=== PATIENT | male | born 1955 | race Asian ===

== ENCOUNTER 2020-06-07 19:58 | Emergency (ER) | payer OTHER ==
[~2020-06-07] VITALS: Ht 170.2 cm; Wt 76.2 kg
[2020-06-07 20:40] VITALS: TEMP 98.9
[2020-06-07 21:26] LABS: PLATELET COUNT 215 K/uL (142-355)
[2020-06-07 23:05] VITALS: BP 128/64
== END 2020-06-07 23:08 | disposition home or self-care (01) ==
LOC: ED 19:58
PROVIDERS: Emergency Medicine Emergency Medical Services
DX: J20.9 Acute bronchitis, unspecified (principal); Z20.828 Contact with and (suspected) exposure to other viral communicable diseases
CPT/HCPCS: 36415; 80053; 85027; 87635; 99284; U0003

== ENCOUNTER 2020-06-20 08:25 | Outpatient (CLI) | payer OTHER | END 2020-06-20 21:48 | disposition home or self-care (01) | LOC: CT 08:25 | PROVIDERS: ATTEND Nurse Practitioner | DX: R04.2 Hemoptysis (principal) | CPT/HCPCS: Q9963 ==

== ENCOUNTER 2021-05-07 14:31 | Outpatient (CLI) | payer OTHER ==
[2021-05-07 14:49] LABS: POTASSIUM 4.2 mmol/L (3.6-5.2)
[2021-05-07 14:50] LABS: PLATELET COUNT 213 K/uL (142-355)
== END 2021-05-07 19:09 | disposition home or self-care (01) ==
LOC: LABW 14:31
PROVIDERS: ATTEND Specialist
DX: Z01.810 Encounter for preprocedural cardiovascular examination (principal); R94.39 Abnormal result of other cardiovascular function study
CPT/HCPCS: 36415; 80048; 85027

== ENCOUNTER 2021-05-22 10:13 | Outpatient (CLI) | payer OTHER | END 2021-05-22 21:23 | disposition home or self-care (01) | LOC: LAB 10:13 | PROVIDERS: ATTEND Internal Medicine Gastroenterology | DX: K64.0 First degree hemorrhoids (principal) | CPT/HCPCS: 82272 ==

== ENCOUNTER 2021-07-24 09:01 | Outpatient (CLI) | payer OTHER | END 2021-07-24 19:23 | disposition home or self-care (01) | LOC: US 09:01 | PROVIDERS: ATTEND Registered Nurse | DX: R22.1 Localized swelling, mass and lump, neck (principal) ==

== ENCOUNTER 2022-12-31 06:39 | Outpatient (CLI) | payer OTHER ==
[2022-12-31 07:17] LABS: PLATELET COUNT 223 K/uL (142-355)
[2022-12-31 07:35] LABS: POTASSIUM 3.7 mmol/L (3.6-5.2)
== END 2022-12-31 19:00 | disposition home or self-care (01) ==
LOC: LABW 06:39
PROVIDERS: ATTEND Internal Medicine
DX: N18.31 Chronic kidney disease, stage 3a (principal); E03.8 Other specified hypothyroidism; E78.2 Mixed hyperlipidemia; I25.10 Atherosclerotic heart disease of native coronary artery without angina pectoris; Z79.899 Other long term (current) drug therapy
CPT/HCPCS: 36415; 80053; 80061; 81002; 82248; 82330; 82570; 83036; 83735; 83970; 84100; 84156; 84439; 84443; 85027